=== PATIENT | male | born 1940 | race Caucasian/White ===

== ENCOUNTER → 2017-11-06 | Outpatient (CLI) | payer OTHER ==
[~2017-11-06] VITALS: Ht 177.8 cm; Wt 130.0 kg
[~2017-11-06] MED LIST: ALLEGRA60 MG PO; AMLODIPINE BESY10 MG PO; ASPIR 8181 M1 PO; ASPIRIN325 MG PO; ATENOLOL100 MG PO; ATENOLOL50 MG PO; CELEBREX200 MG PO; CIALIS20 MG PO; COLACE100 MG PO; FLONASE SENSIM5.9 ML BOTH NARES; GEMFIBROZIL600 MG PO; HYDROCODON-ACE1 EAC7 PO; IBUPROFEN400 MG PO; LIDODERM 5% P1 PATCH TD; LIPITOR20 MG PO; LISINOPRIL40 MG PO; LOPID600 MG PO; MAGNESIUM400 M1 PO; METFORMIN HCL850 MG PO; NEXIUM40 MG PO; TUMS500 MG PO; TYLENOL ARTHRI650 MG PO; TYLENOL EXTRA500 MG PO; VITAMIN B12 100MCG PO; VITAMIN D10000 UNIT PO; VITAMIN D31000 UNI2 PO
[2017-11-06 09:13] LABS: CHLORIDE 102 mEq/L (99-109); POTASSIUM 3.9 mEq/L (3.7-5.4); SODIUM 143 mEq/L (136-147)
[2017-11-06 09:15] LABS: GLUCOSE 167 mg/dL (70-99)
[2017-11-06 09:19] LABS: CREATININE 1.4 mg/dL (0.6-1.3); GFR ESTIMATE (CALCULATED) 52 mL/min/ (58.99-99999)
[2017-11-06 09:20] LABS: UREA NITROGEN (BUN) 21 mg/dL (9-23)
== END | disposition home or self-care (01) ==
LOC: AMB 08:17
PROVIDERS: Internal Medicine
PROC: 0DJD8ZZ Inspection of Lower Intestinal Tract, Via Natural or Artificial Opening Endoscopic (ICD-10-PCS; principal; 2017-11-06)
DX: Z12.11 Encounter for screening for malignant neoplasm of colon (principal); K57.30 Diverticulosis of large intestine without perforation or abscess without bleeding; E11.9 Type 2 diabetes mellitus without complications; I10 Essential (primary) hypertension; K21.9 Gastro-esophageal reflux disease without esophagitis; I45.10 Unspecified right bundle-branch block; Z79.84 Long term (current) use of oral hypoglycemic drugs; Z79.82 Long term (current) use of aspirin
CPT/HCPCS: 80048; 82948; 93005